=== PATIENT | female | born 1975 | race Caucasian/White ===

== ENCOUNTER 2016-08-16 19:49 | Emergency (ER) | payer MEDICARE, OTHER | END 2016-08-16 21:35 | disposition home or self-care (01) | LOC: ER1 19:49 | DX: Z46.89 Encounter for fitting and adjustment of other specified devices (principal); I63.9 Cerebral infarction, unspecified; Z88.0 Allergy status to penicillin; Z88.5 Allergy status to narcotic agent | CPT/HCPCS: 74000; 99282; Q9963 ==

== ENCOUNTER → 2016-08-26 | Outpatient (CLI) | payer MEDICARE, OTHER ==
[2016-08-26 09:52] LABS: HEMOGLOBIN 10.9 gm/dl (12.3-15.3); RED BLOOD COUNT 3.23 M/UL (4.00-5.10); WHITE BLOOD COUNT 5.8 K/UL (4.5-11.0)
== END ==
LOC: OPSV 08:30
PROVIDERS: Internal Medicine
DX: M31.1 Thrombotic microangiopathy (principal)
CPT/HCPCS: 36415; 36430; 80053; 85025; 86900; 86901; 86927; J7050; P9017; Q0163

== ENCOUNTER 2016-09-09 15:06 | Emergency (ER) | payer MEDICARE, OTHER | END 2016-09-09 17:05 | disposition home or self-care (01) | LOC: ER1 15:06 | DX: K94.21 Gastrostomy hemorrhage (principal); Y83.3 Surgical operation with formation of external stoma as the cause of abnormal reaction of the patient, or of later complication, without mention of misadventure at the time of the procedure | CPT/HCPCS: 99283 ==

== ENCOUNTER → 2016-09-09 | Outpatient (CLI) | payer MEDICARE, OTHER ==
[~2016-09-09] VITALS: Ht 167.6 cm; Wt 48.1 kg
[2016-09-09 09:32] LABS: HEMOGLOBIN 10.9 gm/dl (12.3-15.3); RED BLOOD COUNT 3.24 M/UL (4.00-5.10); WHITE BLOOD COUNT 5.4 K/UL (4.5-11.0)
== END ==
LOC: OPSV 08:30
PROVIDERS: Internal Medicine
DX: M31.1 Thrombotic microangiopathy (principal)
CPT/HCPCS: 36415; 36430; 80053; 85025; 86900; 86901; 86927; 99283; J7050; P9017; Q0163

== ENCOUNTER → 2016-09-22 | Outpatient (CLI) | payer MEDICARE, OTHER ==
[~2016-09-22] VITALS: Ht 167.6 cm; Wt 48.1 kg
[2016-09-22 09:58] LABS: HEMOGLOBIN 10.5 gm/dl (12.3-15.3); RED BLOOD COUNT 3.1 M/UL (4.00-5.10); WHITE BLOOD COUNT 4.9 K/UL (4.5-11.0)
== END ==
LOC: OPSV 08:30
PROVIDERS: Internal Medicine
DX: M31.1 Thrombotic microangiopathy (principal)
CPT/HCPCS: 36415; 36430; 80053; 85025; 86900; 86901; 86927; J7050; P9017; Q0163

== ENCOUNTER → 2016-10-07 | Outpatient (CLI) | payer MEDICARE, OTHER ==
[~2016-10-07] VITALS: Ht 167.6 cm; Wt 48.1 kg
== END ==
LOC: OPSV 08:30
DX: M31.1 Thrombotic microangiopathy (principal)
CPT/HCPCS: 36415; 36430; 86900; 86901; 86927; J7050; P9017; Q0163

== ENCOUNTER → 2016-10-23 | Outpatient (CLI) | payer MEDICARE, OTHER ==
[~2016-10-23] VITALS: Ht 167.6 cm; Wt 48.1 kg
[2016-10-23 09:29] LABS: HEMOGLOBIN 10.6 gm/dl (12.3-15.3); RED BLOOD COUNT 3.15 M/UL (4.00-5.10)
== END ==
LOC: OPSV 08:45
PROVIDERS: Internal Medicine
DX: M31.1 Thrombotic microangiopathy (principal)
CPT/HCPCS: 36415; 36430; 80053; 85025; 86900; 86901; 86927; J7050; P9017; Q0163

== ENCOUNTER → 2016-11-04 | Outpatient (CLI) | payer MEDICARE, OTHER ==
[~2016-11-04] VITALS: Ht 167.6 cm; Wt 48.1 kg
[2016-11-04 09:38] LABS: HEMOGLOBIN 10.5 gm/dl (12.3-15.3); RED BLOOD COUNT 3.13 M/UL (4.00-5.10)
[2016-11-04 09:44] LABS: WHITE BLOOD COUNT 7.1 K/UL (4.5-11.0)
== END ==
LOC: OPSV 11-02 09:00
PROVIDERS: Internal Medicine
DX: M31.1 Thrombotic microangiopathy (principal)
CPT/HCPCS: 36415; 36430; 80053; 85025; 86900; 86901; 86927; J7050; P9017; Q0163

== ENCOUNTER → 2016-11-18 | Outpatient (CLI) | payer MEDICARE, OTHER ==
[~2016-11-18] VITALS: Ht 167.6 cm; Wt 48.1 kg
== END ==
LOC: OPSV 08:30
DX: M31.1 Thrombotic microangiopathy (principal)
CPT/HCPCS: 36415; 36430; 86900; 86901; 86927; J7050; P9017; Q0163

== ENCOUNTER → 2016-12-02 | Outpatient (CLI) | payer MEDICARE, OTHER ==
[~2016-12-02] VITALS: Ht 167.6 cm; Wt 48.1 kg
[2016-12-02 10:02] LABS: HEMOGLOBIN 11.7 gm/dl (12.3-15.3); RED BLOOD COUNT 3.41 M/UL (4.00-5.10); WHITE BLOOD COUNT 7.7 K/UL (4.5-11.0)
== END ==
LOC: OPSV 08:30
PROVIDERS: Internal Medicine
DX: M31.1 Thrombotic microangiopathy (principal)
CPT/HCPCS: 36415; 36430; 80053; 85025; 86900; 86901; 86927; J7050; P9017; Q0163